=== PATIENT | male | born 1985 | race Caucasian/White ===

== ENCOUNTER 2024-04-07 16:44 | Emergency (ER) | payer OTHER, SELFPAY ==
[2024-04-07 16:52] VITALS: BP 149/100; PULSE 86; RESP 16; TEMP 36.9; O2SAT 100
[2024-04-07 16:58] VITALS: BP 152/92
--- NOTE | 2024-04-07 17:39 | ED.DENTAL ---
HPI - Dental/Oral General Chief complaint: Dental/Oral Stated complaint: tooth abcess Source: patient Mode of arrival: ambulatory History of Present Illness HPI Narrative: 38-year-old male presented for complaint of left upper dental pain over the past few days. States he woke this morning with swelling and pain to the face overlying the tooth. Endorses poor dentition throughout and states he has had dental abscesses in the past. He has taken ibuprofen throughout the day. Scheduled with dentist in May. Complaint: tooth pain Related Data Allergies Allergy/AdvReac Type Severity Reaction Status Date / Time No Known Allergies Allergy Unknown Verified 01/05/16 14:28 Review of Systems Review of Systems: CONSTITUTIONAL: Denies body aches, fever, chills ENT: Denies rhinorrhea, congestion, sore throat, or otalgia. Reports dental pain CARDIOVASCULAR: Denies chest pain, palpitations RESPIRATORY: Denies cough or dyspnea. SKIN: Denies rash, itching, or wounds. MUSCULOSKELETAL: Denies myalgia. NEUROLOGIC: Denies headache, numbness, tingling, or weakness. PMFSH Comments At time of signature, I have reviewed and agree with nursing past medical, surgical, social and family history unless otherwise noted. Please see nursing chart for further information. There is no relevant family history pertinent to the presenting complaint Exam Narrative: GENERAL: Appears in pain; no acute distress. EYES: EOMI. No redness or drainage. Conjunctivae normal. ENT: Dental pain location of #10-11. Mild swelling and tenderness to the face at the site. #10 is broken to gumline, no active drainage. no warmth or erythema over the site. Poor dentition throughout. Mucous membranes pink and moist. TMs normal bilaterally. Throat normal. Uvula midline. no dysphagia, odynophagia, dysphonia, or dyspnea. NECK: Normal AROM. bilateral anterior cervical lymphadenopathy. no induration below mandible, no neck pain. CHEST: No respiratory distress. Clear to auscultation. HEART: Regular rate and rhythm. No murmur appreciated. SKIN: Warm, dry, no rash. Normal skin turgor. NEURO: No focal deficits. Course Course Emergency Course: Patient is aware of diagnosis, understands and agrees to treatment plan. Anticipatory guidance given. Patient agrees to follow-up as directed and is aware of reasons to seek care at the emergency department. Portions of this record may have been created with voice recognition software Level of Care: Express Care Visit Vital Signs Vital signs: Vital Signs Temperature 98.4 F 04/07/24 16:52 Pulse Rate 86 04/07/24 16:52 Respiratory Rate 16 04/07/24 16:52 Blood Pressure 149/100 H 04/07/24 16:52 Pulse Oximetry 100 04/07/24 16:52 Oxygen Delivery Room Air 04/07/24 16:52 Temperature 98.4 F 04/07/24 16:52 Pulse Rate 86 04/07/24 16:52 Respiratory Rate 16 04/07/24 16:52 Blood Pressure 152/92 H 04/07/24 16:58 Pulse Oximetry 100 04/07/24 16:52 Oxygen Delivery Room Air 04/07/24 16:52 MDM - Dental/Oral MDM Narrative Medical decision making narrative: Patients pain and complaint coupled with physical findings are consistent with dental abscess. There are no focal signs of space occupying lesions that are compromising to the airway; Patient is non-toxic appearing. The floor of the mouth is soft with no signs of Jose Antonio's Angina; Patient is without trismus or drooling and able to swallow secretions. Patient is felt appropriate for discharge home with dental follow up as scheduled. Discussed physical exam findings. Advised supportive measures and signs/symptoms to go to the ER. Differential Diagnosis Differential diagnosis: Likely gingival abscess, dental caries, toothache, dental abscess, fracture of tooth and aphthous ulcer Discharge Plan Discharge Clinical Impression: Dental abscess Patient Disposition: Home, Self-Care Condition: Stable Instructions: Antibiot
== END 2024-04-07 17:50 | disposition home or self-care (01) ==
PROVIDERS: Emergency Provider Nurse Practitioner Family
DX: K04.7 Periapical abscess without sinus (principal)
CPT/HCPCS: 99213; G0463

== ENCOUNTER 2024-07-03 15:12 | Emergency (ER) | payer OTHER, SELFPAY ==
[2024-07-03 15:20] VITALS: BP 108/64; PULSE 80; RESP 20; TEMP 36.8; O2SAT 98
--- NOTE | 2024-07-03 15:23 | ED.DENTAL ---
HPI - Dental/Oral General Chief complaint: Dental/Oral Stated complaint: Toothache Time Seen by Provider: 07/03/24 15:25 Source: patient, RN notes reviewed and old records reviewed Mode of arrival: ambulatory Limitations: no limitations History of Present Illness HPI Narrative: 38 year old male presents to express care with complaints of having upper teeth extracted today at [facility] in [facility] at 1300 and he reports that they were suppose to call him in pain medication, Ibuprofen and an antibiotic which they have not done. Patient reports that he has tried to call the dental clinic and can not get through and has checked at [facility] where he gets his medication and they have not received any prescription orders from [facility]. Patient has wash cloth to upper gums for the bleeding stating they gave him 3 pieces of gauze. Patient reprts that he has mouth rinse at home to use but needs other medictions filled, he is concerned for infection. Package of 4X4's given to patient and instructed him to roll gauze and place along gums to control bleeding. MD Complaint: tooth pain Onset (ago): day(s) (today upper teeth removed at 1300 [facility]) Severity scale (1-10): 6 Treatment prior to arrival: none Related Data Home Medications Medication Instructions Recorded Confirmed No Home Medications 07/03/24 07/03/24 Allergies Allergy/AdvReac Type Severity Reaction Status Date / Time No Known Allergies Allergy Unknown Verified 07/03/24 15:14 Review of Systems Review of Systems: CONSTITUTIONAL: Denies fever, chills, or sweats. ENT: Denies rhinorrhea, congestion, sore throat, or otalgia. Reports dental pain to upper gums where he had teeth extracted today,had bottom teeth done first part of month and today at 1300 had upper teeth extracted. CARDIOVASCULAR: Denies chest pain, palpitations, or edema. RESPIRATORY: Denies cough or dyspnea. SKIN: Denies rash or itching. MUSCULOSKELETAL: Denies myalgia. NEUROLOGIC: Denies headache All systems reviewed & are unremarkable except as noted in HPI and below PMFSH Past Medical History Medical History (Updated 07/03/24 @ 16:07 by Janessa Neri NP) Dentalgia Fracture of right upper extremity History of dental problems Social History Social History (Updated 07/03/24 @ 15:52 by Janessa Neri NP) Smoking packs per day: 1 Smoking cigarettes per day: 20.0 Smoking status: Current every day smoker Tobacco type: cigarettes Alcohol intake: unknown Substance use: unknown Gender identity (if verbalized by the patient): Male Comments At time of signature, agree with nursing past medical, surgical, social and family history. There is no relevant family history pertinent to the presenting complaint Exam Narrative: GENERAL: Well-appearing, well-nourished, and in no acute distress. HEAD: Normocephalic, atraumatic. EYES: PERRLA and EOMI. ENT: Nares clear, no rhinorrhea or epistaxis. Mucous membranes moist. Patient is now edentulous after having upper teeth extracted at [facility] today at 1300. Patient is here at clinic stating he needs antibiotic and some Ibuprofen and some pain medication that they were suppose to call in for him. Patient reports that pharmacy has no record of new prescription and he is unable to get through to clinic. Called [facility] and they reported no scripts received from [facility], Called [facility] and left message unable to get any answer. No trismus noted small amount of bloody drainage from gums, rolled gauze placed on gums by patient as instructed. NECK: Supple. no Lymphadenopathy CHEST: Clear to auscultation. No respiratory distress. SAO2 98% on room air HEART: Regular rate and rhythm. No murmur heard. Normal peripheral pulses. SKIN: Warm, dry, no rash. NEURO: No focal deficits. Alert and oriented x3. Course Course Emergency Course: Patient is aware of diagnosis, understands and agrees to treatment plan. Anti
== END 2024-07-03 15:40 | disposition home or self-care (01) ==
PROVIDERS: Emergency Provider Registered Nurse
DX: K08.89 Other specified disorders of teeth and supporting structures (principal); F17.210 Nicotine dependence, cigarettes, uncomplicated
CPT/HCPCS: 99213; G0463